=== PATIENT | male | born 1995 ===

== ENCOUNTER 2020-01-04 10:07 | Outpatient (REF) | payer BC, SELFPAY ==
[2020-01-07 23:08] LABS: SARS-CoV-2 RNA Undetected (Undetected); SARS-CoV-2 Specimen Source Nasal
== END 2020-01-04 10:27 ==
LOC: NCHCN 10:07
PROVIDERS: Visit Provider Internal Medicine
DX: Z20.828 Contact with and (suspected) exposure to other viral communicable diseases (principal)
CPT/HCPCS: U0003